=== PATIENT | female | born 1970 | race Caucasian/White ===

== ENCOUNTER 2018-08-15 06:31 | Day surgery (SDC) | payer BC ==
[2018-08-10 09:00] VITALS: BMI 30.2
--- NOTE | 2018-08-14 17:15 | P.HPOB ---
History of Present Illness H&P Date: 08/14/18 Chief Complaint: Atypical glandular cells of undetermined significance, endometrial polyps This is a 48-year-old female 3 para 2 who presents for dilation and curettage with hysteroscopy secondary to atypical glandular cells of undetermined significance found on her Pap smear. She did have a pelvic ultrasound that showed a uterus measuring 10.4 x 5.1 x 5 cm. Endometrial thickness was 1.4 cm with questionable 2 polyps, one measuring 0.9 cm and another measuring 0.6 cm. The left ovary had a small follicle measuring 2.4 cm and the right ovary appeared normal. She did have a colposcopy performed on and pathology showed benign tissue on the endocervical and cervical biopsies. Obstetrical history: . History of 2 vaginal deliveries and 1 miscarriage. Gynecologic history: No history of sexual transmitted diseases. She is still having menses occurring every 28 days lasting at least 5 days with heavy flow for 1 day and spotting for the rest of the days. Social history: She is . 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 Review of Systems Constitutional: Denies chills, Denies fever Eyes: denies blurred vision, denies pain Ears, nose, mouth and throat: Denies headache, Denies sore throat Cardiovascular: Denies chest pain, Denies shortness of breath Respiratory: Denies cough Gastrointestinal: Denies abdominal pain, Denies diarrhea, Denies nausea, Denies vomiting Genitourinary: Reports dysmenorrhea, Reports menorrhagia Menstruation: Reports period heavy Musculoskeletal: Denies myalgias Integumentary: Denies pruritus, Denies rash Neurological: Denies numbness, Denies weakness Psychiatric: Denies anxiety, Denies depression Endocrine: Denies fatigue, Denies weight change Past Medical History Past Medical History: GERD/Reflux, Thyroid Disorder Additional Past Medical History / Comment(s): 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 IBS. History of Any Multi-Drug Resistant Organisms: None Reported Additional Past Surgical History / Comment(s): [place] teeth extracted. Colonoscopy. Past Anesthesia/Blood Transfusion Reactions: Family History of Problems w/ Anesthesia, Postoperative Nausea & Vomiting (PONV) Additional Past Anesthesia/Blood Transfusion Reaction / Comment(s): Difficult IV start. Mom and Dad both had low BP with anesthesia. Past Psychological History: No Psychological Hx Reported Smoking Status: Never smoker Past Alcohol Use History: Rare Past Drug Use History: None Reported - Past Family History Mother Family Medical History: Cancer Additional Family Medical History / Comment(s): Non Hodgkins Lymphoma - . Medications and Allergies Home Medications Medication Instructions Recorded Confirmed Type Cabergoline 0.5 mg PO MOTH 08/10/18 08/10/18 History Calcium Carbonate/Vitamin D3 1 each PO DAILY 08/10/18 08/10/18 History [Calcium 600-Vit D3 200 Tablet] Levothyroxine Sodium [Synthroid] 75 mcg PO QAM 08/10/18 08/10/18 History Magnesium Oxide [Mag-Ox] 250 mg PO DAILY 08/10/18 08/10/18 History Melatonin 1 mg PO HS 08/10/18 08/10/18 History Multivitamins, Thera [Multivitamin 1 tab PO DAILY 08/10/18 08/10/18 History (formulary)] Oxybutynin Chloride [Ditropan XL] 5 mg PO DAILY 08/10/18 08/10/18 History Allergies Allergy/AdvReac Type Severity Reaction Status Date / Time No Known Allergies Allergy Verified 08/10/18 09:00 Exam Osteopathic Statement: *. No significant issues noted on an osteopathic structural exam other than those noted in the History and Physical/Consult. HEENT: Within normal limits Heart: Regular rate and rhythm Lungs: Clear to auscultation bilaterally Abdomen: Soft, nontender Pelvic exam: Uterus is mid position, nontender, with no adnexal masses or tenderness noted. Extremities: Negative Homans Assessment and Plan (1) Atypical glandular cells of undetermined significance of cervix Status: Acute Code(s): R87.619 - UNSP ABNORMAL CYTOLOG FINDINGS IN SPECMN FROM CERVIX UTERI SNOMED Code(s): 393698799 (2) Endometrial polyp Status: Acute Code(s): N84.0 - POLYP OF CORPUS UTERI SNOMED Code(s): 08329122 Plan: Proceed with dilation and curettage with hysteroscopy. I have discussed the risks, benefits, and alternative therapies for the above- mentioned procedure and for both sedation/anesthesia as well as necessary blood products administration, if indicated, as they pertain to this patient. The patient has indicated her understanding and acceptance of the risks and procedures discussed.
[~2018-08-15 06:31] MED LIST: DEXAMETHASONE SOD PHOSPHATE 10 MG/ML 1 ML VIAL IV ONE; LACTATED RINGERS 1,000 ML IV SCH; LIDOCAINE 1% 20 ML VIAL (10MG/ML) FOR IV START INTRADERMA PRN; MIDAZOLAM (PF) 2 MG/2 ML VIAL IV PRN; Pre Op ABX Message 1 EACH MISC MISCELLANE ONE; fentaNYL (PF) 50 MCG/ML 2 ML AMP IV PRN
[2018-08-15] MEDS ORDERED: ONDANSETRON 4 MG/2 ML VIAL IVP ONE (06:59)
[2018-08-15] MEDS ORDERED: fentaNYL (PF) 50 MCG/ML 2 ML AMP ONE (07:25)
[2018-08-15] MEDS ORDERED: MIDAZOLAM 2 MG/2 ML VIAL ONE (07:25)
[2018-08-15] MEDS ORDERED: LIDOCAINE 1% INJ 10MG/ML (20 ML MDV) ONE (07:25)
[2018-08-15] MEDS ORDERED: PROPOFOL 10 MG/ML 20 ML VIAL IV ONE (07:25)
[2018-08-15] MEDS ORDERED: KETOROLAC 30 MG/ML 1 ML VIAL ONE (07:25)
--- NOTE | 2018-08-15 07:54 | P.OP ---
Date of Procedure: 08/15/18 Preoperative Diagnosis: Atypical glandular cells of undetermined significance Endometrial thickening, possible polyps Postoperative Diagnosis: Same Procedure(s) Performed: Dilation and curettage with hysteroscopy Anesthesia: other (LMA general) Surgeon: Lakisha Morales Estimated Blood Loss (ml): 3 Pathology: other (Endometrial curettings) Condition: stable Disposition: same day Indications for Procedure: This is a 48-year-old female 3 para 2 who presents for dilation and curettage with hysteroscopy secondary to atypical glandular cells of undetermined significance found on her Pap smear. She did have a pelvic ultrasound that showed a uterus measuring 10.4 x 5.1 x 5 cm. Endometrial thickness was 1.4 cm with questionable 2 polyps, one measuring 0.9 cm and another measuring 0.6 cm. The left ovary had a small follicle measuring 2.4 cm and the right ovary appeared normal. She did have a colposcopy performed on and pathology showed benign tissue on the endocervical and cervical biopsies. Operative Findings: Uterus is anteverted and sounded to 9 cm. Upon hysteroscopy, the left tubal ostia is visualized and the right tubal ostia is not visualized. There was no visible polyps or fibroids noted. A moderate amount of endometrial curettings are noted. Description of Procedure: The patient is taken to the operating room where she is placed in the dorsal lithotomy position. She is prepped and draped in the normal sterile fashion. Her bladder is drained with a catheter and then removed. Examination is performed and anesthesia. Uterus is found to be anteverted, with no adnexal masses palpated. A weighted speculum was placed in the patient's vagina and a right angle retractor was used to visualize the cervix. The anterior lip of the cervix is grasped with a single-tooth tenaculum. The uterus is sounded to 9 cm. Cervix is gently dilated with Sy dilators until a hysteroscope could be passed. Hysteroscopy is performed using normal saline. The above-noted findings are made and pictures are taken. The cervix is gently dilated further with Sy dilators. Next a polyp forcep was introduced and minimal tissue was obtained. Next a medium-size sharp curet was introduced and sharp curettage was performed until a gritty texture was noted. A moderate to large amount of endometrial curettings are obtained. The specimen is sent to pathology. The single-tooth tenaculum is removed from the cervix. A ring forcep was placed for hemostasis. Once adequate hemostasis was noted. Ring forcep was removed and no active bleeding was noted. All other insulins are removed from the vagina. All sponge counts are correct. The patient is then taken to recovery room in stable condition.
[2018-08-15 09:20] VITALS: BP 102/66; PULSE 60; RESP 18
== END 2018-08-15 09:34 | disposition home or self-care (01) ==
LOC: OR 06:31
PROVIDERS: ATTEND Obstetrics & Gynecology
DX: R87.619 Unspecified abnormal cytological findings in specimens from cervix uteri (principal); R84.0 Abnormal level of enzymes in specimens from respiratory organs and thorax; K21.9 Gastro-esophageal reflux disease without esophagitis; E07.9 Disorder of thyroid, unspecified; E66.9 Obesity, unspecified; Z68.30 Body mass index [BMI] 30.0-30.9, adult; Z80.7 Family history of other malignant neoplasms of lymphoid, hematopoietic and related tissues; Z79.890 Hormone replacement therapy; Z79.899 Other long term (current) drug therapy
CPT/HCPCS: 81025; 88305; 58558; J2250; J1100; J2405; J2001; J3010; J1885; J2704